=== PATIENT | male | born 2000 | race African-American/Black ===

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

== ENCOUNTER 2020-12-16 21:11 | Emergency (ER) | payer SELFPAY ==
[2020-12-16 21:24] VITALS: BP 144/79; PULSE 77
--- NOTE | 2020-12-16 21:39 | EDM.PDOC ---
ED HPI GENERAL MEDICAL PROBLEM - General Chief Complaint: Lower Extremity Injury/Pain Stated Complaint: LEFT LEG PAINFUL & SWOLLEN Time Seen by Provider: 12/16/20 21:22 Source of Information: Reports: Patient, RN Notes Reviewed History Limitations: Reports: No Limitations - History of Present Illness INITIAL COMMENTS - FREE TEXT/NARRATIVE: Patient is a 20-year-old male who presents to the ED for evaluation of the left leg issue. Patient notes for the last few months, he has had an area on his left anterior thigh, that is darker at times, somewhat painful. This is roughly softball size. It does appear to have mottling type appearance to it there is no warmth or redness associated at this time. The patient himself does have a low-grade fever of 100 F, he is not complaining of any cough, he states he has some intermittent shortness of breath but otherwise been feeling well. He notes that his uncle saw this tonight, and he became concerned for the possibility of a blood clot so he comes to the ER for management and evaluation. Left Leg Pain Score (Numeric/FACES): 6 - Related Data Allergies Allergy/AdvReac Type Severity Reaction Status Date / Time dust Allergy Airway Uncoded 12/16/20 21:24 Tightness pollen Allergy Airway Uncoded 12/16/20 21:24 Tightness Past Medical History - Past Health History Medical/Surgical History: Denies Medical/Surgical History Musculoskeletal History: Reports: Other (See Below) Other Musculoskeletal History: left hand surgery - Infectious Disease History Infectious Disease History: Reports: Chicken Pox Social & Family History - Tobacco Use Tobacco Use Status *Q: Current Every Day Tobacco User Years of Tobacco use: 2 Packs/Tins Daily: 1 - Caffeine Use Caffeine Use: Reports: Coffee, Energy Drinks, Soda, Tea - Recreational Drug Use Recreational Drug Use: Yes Recreational Drug Type: Reports: Marijuana/Hashish Recreational Drug Use Frequency: Socially Review of Systems - Review of Systems Review Of Systems: Comprehensive ROS is negative, except as noted in HPI. ED EXAM, GENERAL - Physical Exam Exam: See Below Exam Limited By: No Limitations General Appearance: Alert, WD/WN, No Apparent Distress Respiratory/Chest: No Respiratory Distress, Lungs Clear, Normal Breath Sounds, No Accessory Muscle Use, Chest Non-Tender Cardiovascular: Normal Peripheral Pulses, Regular Rate, Rhythm, No Edema Peripheral Pulses: 2+: Dorsalis Pedis (L), Dorsalis Pedis (R) Extremities: Normal Range of Motion, Normal Capillary Refill, Mottled (The area is just anterior to the patella, roughly softball size in area and does seem to extend caudally and fades as it goes upwards. This is not tender, and is not warm.). No: Increased Warmth Neurological: Alert, Oriented, Normal Cognition, No Motor/Sensory Deficits Psychiatric: Normal Affect, Normal Mood Skin Exam: Warm, Dry, Intact, No Rash, Other (see extremity documentation for more detail) Course - Vital Signs Last Recorded V/S: Last Vital Signs Temp 100.0 F 12/16/20 21:21 Pulse 77 12/16/20 21:21 Resp 18 12/16/20 21:21 BP 144/79 H 12/16/20 21:21 Pulse Ox 97 12/16/20 21:21 - Orders/Labs/Meds Orders: Active Orders 24 hr Category Date Time Status VL Duplex Lwr Ext Veins Ltd Lt [US] Stat Exams 12/16/20 21:25 Ordered CORONAVIRUS COVID-19 PCR [facility] 12/16/20 22:24 Ordered - Re-Assessments/Exams Free Text/Narrative Re-Assessment/Exam: 12/16/20 21:37 Patient presents to the ED for evaluation of a leg issue. Unsure as to what could have caused this. He denies any trauma to the area as an insulting injury. We will get ultrasound of the area for evaluation. Patient is not having pain at this time. I did offer to do an outpatient COVID-19 screen on the patient as he is discharged, and he agreed for this. He has a slight temp erature, and other minor symptoms concerning for possible COVID-19 infection. 12/16/20 22:35 The patient's ultrasound has been performed, and demonstrates no DVT or other acute abnormality. As of this time I am not exactly sure was causing the discoloration of his skin. But due to his fever, cough, and other sick-like symptoms we will go ahead and do an outpatient Covid test for further evaluat ion. I will have him follow-up with a regular provider sometime this week. Departure - Departure Time of Disposition: 22:35 Disposition: Home, Self-Care 01 Condition: Good Clinical Impression: Discoloration of skin of lower leg - Discharge Information *PRESCRIPTION DRUG MONITORING PROGRAM REVIEWED*: No *COPY OF PRESCRIPTION DRUG MONITORING REPORT IN PATIENT KITTY: No Referrals: PCP,None [Primary Care Provider] - Forms: ED Department Discharge Additional Instructions: You were seen in the ER today for your skin discoloration and respiratory symptoms. Your US demonstrated no sign of DVT at leigha's visit. There is no clear etiology as to what is causing this discoloration of her skin. Highly recommend you follow-up with your regular care provider in our clinic at [phone], as you might need a dermatology referral so they can do a punch biopsy to see what this lesion could be. At this time we did test you for COVID-19. We ask that you self-quarantine and limit your exposure to others until you receive your results from the state. You have been given a work note to reflect this. Swabs are sent from this facility on a daily basis, at 2:30 PM, you should expect up to 3-5 business days for positive or negative results. However you may receive results earlier than this. We are doing our best to call as soon as we get results from the [place] dept. of Health. You may take 500 mg Tylenol every hours 6 hours for pain/fever relief. Do not exceed 4000 mg Tylenol in a 24-hour time span. However, running a fever is your body's natural response to illness, and it allows the body to develop antibodies to disease, we are recommending trying to limit the use of Tylenol as much as possible to allow your body's natural immune response. Sepsis Event Note (ED) - Evaluation Sepsis Screening Result: No Definite Risk - Focused Exam Vital Signs: Vital Signs Temp Pulse Resp BP Pulse Ox 12/16/20 21:21 100.0 F 77 18 144/79 H 97 - My Orders Last 24 Hours: My Active Orders 12/16/20 21:25 VL Duplex Lwr Ext Veins Ltd Lt [US] Stat 12/16/20 22:24 CORONAVIRUS COVID-19 PCR [facility] Urgent - Assessment/Plan Last 24 Hours: My Active Orders 12/16/20 21:25 VL Duplex Lwr Ext Veins Ltd Lt [US] Stat 12/16/20 22:24 CORONAVIRUS COVID-19 PCR [facility] Urgent
--- NOTE | 2020-12-17 09:00 | US ---
Left lower extremity deep venous: Duplex and color Doppler evaluation was obtained of the left common femoral, proximal greater saphenous, superficial femoral, popliteal, posterior tibial and peroneal veins. Right common femoral vein was also evaluated. Comparison: No prior venous imaging is available. Findings: Normal phasic flow, augmentation and compression is seen. No adjacent soft tissue abnormalities are appreciated. Impression: 1. No findings of deep venous thrombosis within the left lower extremity or within the right common femoral vein. Diagnostic code #1 I agree with preliminary report issued by [facility] report finalized on 12/16/20, 11:33 PM [employer]
== END 2020-12-16 22:59 | disposition home or self-care (01) ==
LOC: JD.ED 21:11
DX: L98.8 Other specified disorders of the skin and subcutaneous tissue (principal); Z91.048 Other nonmedicinal substance allergy status; Z72.0 Tobacco use; Z20.822 Contact with and (suspected) exposure to COVID-19
CPT/HCPCS: 93971-26-LT; 93971-LT; 99283; 99284-25; U0002

== ENCOUNTER 2021-07-03 04:21 | Emergency (ER) | payer MEDICAID ==
[2021-07-03 04:33] VITALS: BP 161/87; PULSE 101
[2021-07-03] MEDS ORDERED: Ondansetron 4 MG Tab.DIS PO ONE (04:48)
[2021-07-03] MEDS ORDERED: Ibuprofen 600 MG Tab PO ONE (04:48)
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
--- NOTE | 2021-07-03 06:59 | CR ---
Right hand: 3 views of the right were obtained. Comparison: No prior right hand exam is available. Soft tissue swelling is noted. Plate and screws are noted within the mid diaphysis of the third metacarpal. Joint spaces are preserved. No acute fracture, dislocation or other bony abnormality is appreciated. Impression: 1. Prior surgery within the third metacarpal which appears old. Soft tissue swelling is noted. 2. No acute bony abnormality is identified on right hand exam. Diagnostic code #2
--- NOTE | 2021-07-03 07:01 | CT ---
Head CT Technique: Multiple axial sections through the brain were obtained. Intravenous contrast was not utilized. Reconstructed coronal and sagittal images were obtained. Comparison: No prior intracranial imaging is available. Findings: Ventricles along with basal cisterns and sulci over the convexities appear within normal limits for the patient's age. No abnormal parenchymal densities are seen. No evidence of intracranial hemorrhage is seen. No midline shift or mass-effect is appreciated. Bone window settings were reviewed. Mucosal thickening or retention cyst is noted within the inferior left maxillary sinus measuring 1.3 cm. Minimal mucosal thickening is noted within the right maxillary sinus. Other visualized paranasal sinuses are clear. Visualized mastoid sinuses are clear. No acute calvarial abnormality is appreciated. Impression: 1. Minimal sinus findings which are most likely chronic. 2. No acute intracranial abnormality is seen. Diagnostic code #2 I agree with preliminary report from [facility], finalized on 07/03/21, 6:31 AM CDT, code 1
== END 2021-07-03 05:52 | disposition home or self-care (01) ==
LOC: JD.ED 04:21
DX: S00.83XA Contusion of other part of head, initial encounter (principal); S60.221A Contusion of right hand, initial encounter; E66.9 Obesity, unspecified; Z68.33 Body mass index [BMI] 33.0-33.9, adult; Z87.891 Personal history of nicotine dependence; Z91.048 Other nonmedicinal substance allergy status; Y04.0XXA Assault by unarmed brawl or fight, initial encounter
CPT/HCPCS: 70450; 73130; 99284; A9270

== ENCOUNTER 2023-09-09 01:53 | Emergency (ER) | payer MEDICAID ==
[2023-09-09] MEDS ORDERED: Amoxicillin/Clavulanate K 875-125 MG Tab PO ONE (02:34)
[2023-09-09 03:47] VITALS: BP 145/68; PULSE 114
== END 2023-09-09 03:03 | disposition home or self-care (01) ==
LOC: JD.ED 01:53
DX: S61.451A Open bite of right hand, initial encounter (principal); Z91.048 Other nonmedicinal substance allergy status; Y04.1XXA Assault by human bite, initial encounter
CPT/HCPCS: 99283; A9270; 99282

== ENCOUNTER 2023-12-25 18:17 | Emergency (ER) | payer MEDICAID ==
[2023-12-25] MEDS ORDERED: Sodium Chloride 0.9% 10 ML Syringe FLUSH PRN (18:33)
[2023-12-25 18:44] LABS: BASOPHILS PERCENT AUTO 0.3 % (0.0-1.0); EOSINOPHILS ABSOLUTE AUTO 0.2 K/mm3 (0.0-0.4); EOSINOPHILS PERCENT AUTO 1.3 % (0.0-6.0); HEMATOCRIT 43.8 % (42.0-52.0); HEMOGLOBIN 15.6 gm/dl (14.0-18.0); IMMATURE GRAN ABSOLUTE AUTO 0.04 K/mm3 (0.00-0.05); IMMATURE GRAN PERCENT AUTO 0.3 % (0.0-0.4); LYMPHOCYTES ABSOLUTE AUTO 2.9 K/mm3 (1.0-4.8); LYMPHOCYTES PERCENT AUTO 24.4 % (24.0-44.0); MEAN CORPUSCULAR HEMOGLOBIN 30.6 pg (28.0-32.0); MEAN CORPUSCULAR HGB CONC 35.6 g/dl (32.0-36.0); MEAN CORPUSCULAR VOLUME 86.1 fl (83.0-99.0); MEAN PLATELET VOLUME 9.1 fl (9.4-12.4); MONOCYTES ABSOLUTE AUTO 1.4 K/mm3 (0.0-0.8); MONOCYTES PERCENT AUTO 11.6 % (0.0-8.0); NEUTROPHILS ABSOLUTE AUTO 7.3 K/mm3 (1.8-7.7); NEUTROPHILS PERCENT AUTO 62.1 % (41.0-71.0); PLATELET COUNT,PLT 262 K/mm3 (150-400); RED BLOOD CELL COUNT 5.09 M/mm3 (4.52-5.90)
[2023-12-25 19:15] LABS: A/G RATIO 1.1 (1-2); ALBUMIN 3.9 g/dl (3.4-5.0); ANION GAP 13.8 (5-15); BILIRUBIN TOTAL 0.5 mg/dL (0.2-1.0); BUN/CREATININE RATIO 15.5 (14-18); CALCIUM 8.5 mg/dL (8.5-10.1); CREATININE 1.1 mg/dL (0.7-1.3); EST CRCL DRUG DOSING (CG) 107.84 mL/min; POTASSIUM,K 3.8 mEq/L (3.5-5.1); PROTEIN TOTAL,TP 7.6 g/dl (6.4-8.2)
[2023-12-25] MEDS: Aluminum Hydroxide/Magnesium Hydroxide/Simethicone Susp 30 ML Cup PO ONE (19:15)
[2023-12-25] MEDS: Famotidine 20 MG Tab PO ONE (19:15)
[2023-12-25 19:16] LABS: TSH 0.899 uIU/mL (0.358-3.74)
[2023-12-25 19:58] VITALS: BP 135/85; PULSE 78
== END 2023-12-25 20:02 | disposition home or self-care (01) ==
LOC: JD.ED 18:17
DX: K21.9 Gastro-esophageal reflux disease without esophagitis (principal); R00.2 Palpitations; F17.210 Nicotine dependence, cigarettes, uncomplicated; Z91.048 Other nonmedicinal substance allergy status
CPT/HCPCS: 36415; 71046; 80053; 84443; 84484; 85025; 85379; 93005; 93246; 99285; A9270; 93010; 99284

== ENCOUNTER 2024-09-08 22:54 | Emergency (ER) | payer SELFPAY ==
[2024-09-09 01:37] LABS: STREP A BY PCR NOT DETECTED (NOT DETECT)
[2024-09-09 01:48] LABS: CORONAVIRUS COVID-19 NAA NEGATIVE (NEGATIVE); INFLUENZA A NAA NEGATIVE (NEGATIVE); RESPIRATORY SYNCYTIAL VIR NAA NEGATIVE (NEGATIVE)
[2024-09-09 02:14] VITALS: BP 139/95; PULSE 75
[2024-09-09] MEDS: Albuterol 6.7 GM Inhaler INH ONE (02:24)
== END 2024-09-09 02:28 | disposition home or self-care (01) ==
LOC: JD.ED 22:54
DX: J22 Unspecified acute lower respiratory infection (principal); E66.9 Obesity, unspecified; Z91.048 Other nonmedicinal substance allergy status; Z68.41 Body mass index [BMI] 40.0-44.9, adult
CPT/HCPCS: 0241U; 71045; 87651; 99284; A9270